=== PATIENT | female | born 1965 | race Caucasian/White ===

== ENCOUNTER 2016-12-09 10:59 | Day surgery (SDC) | payer OTHER ==
[~2016-12-09] VITALS: Ht 157.5 cm; Wt 65.4 kg
[2016-12-09] MEDS ORDERED: SIMVASTATIN (11:33)
[2016-12-09] MEDS ORDERED: LEVOTHYROXINE (11:33)
[2016-12-09] MEDS ORDERED: METFORMIN (11:33)
[2016-12-09] MEDS ORDERED: SINGULAIR (11:33)
[2016-12-09 11:35] VITALS: Ht 157.5 cm; Wt 65.4 kg
[2016-12-09 11:56] VITALS: BP 122/72; PULSE 71; RESP 18
[2016-12-09 12:55] VITALS: BP 101/68; PULSE 66; RESP 19
[2016-12-09] MEDS ORDERED: MIDAZOLAM 1 MG/ML 2 ML INJ ONE (13:06)
[2016-12-09] MEDS ORDERED: FENTAnyl 50 MCG/ML VIAL ONE (13:07)
--- NOTE | 2016-12-09 13:09 | GILP ---
DATE OF PROCEDURE: 12/09/2016 NAME OF PROCEDURE: Colonoscopy and biopsy. SURGEON: Michelle Aparicio MD PREOPERATIVE DIAGNOSIS: Screening colonoscopy. POSTOPERATIVE DIAGNOSES: 1. Colonoscopy all the way to the cecum. 2. Two small sigmoid colon polyps were removed using the biopsy forceps. 3. Internal hemorrhoids. INDICATION FOR THE PROCEDURE: Ms. Denia Dinh is a 51-year-old female patient who was scheduled for screening colonoscopy. The procedure and possible complications are well explained to the patient, she understood and conse nted to the procedure. DESCRIPTION OF PROCEDURE: Under the influence of fentanyl and Versed, the colonoscope was carefully introduced in the rectum and under direct vision, it was advanced all the way to the cecum. FINDINGS: The patient had 3 small sigmoid colon polyps and they were removed using the biopsy force ps. She had internal hemorrhoids. She tolerated the procedure very well and there was no complication from the procedure. At the end of the procedure, she was awake with stable vital signs and she was discharged home to the care of h er family. IMPRESSION: Please see postoperative diagnosis. PLAN: 1. Await histopathology report. 2. Screening colonoscopy in 10 years. Dictated By: MICHELLE QURESHI/LUISITO Conf#: [id number] DID#: [id number] CC: MICHELLE APARICIO MD;*EndCC*
== END 2016-12-09 14:21 | disposition home or self-care (01) ==
LOC: GIL 10:59
PROVIDERS: ATTEND Internal Medicine Gastroenterology
DX: Z12.11 Encounter for screening for malignant neoplasm of colon (principal); D12.5 Benign neoplasm of sigmoid colon; K64.8 Other hemorrhoids; E11.9 Type 2 diabetes mellitus without complications
CPT/HCPCS: 45380; 82962; 88305; J2250; J3010; Z7610